=== PATIENT | male | born 1945 | race Caucasian/White ===

== ENCOUNTER 2024-12-16 22:01 | Emergency (ER) | payer OTHER ==
[~2024-12-16] VITALS: Ht 190.5 cm; Wt 93.9 kg
[~2024-12-16 22:01] MED LIST: Antivert25 MG PO; CYCL10 PO; IBUP600 PO; Norco 5-325 Ta1 EACH PO; TRAZ100 PO; ZOLP10 PO
[2024-12-16] MEDS ORDERED: Ondansetron HCl 2 MG / ML 2ML Vial IV ONE (23:15)
[2024-12-17 01:12] VITALS: BP 154/79
== END 2024-12-17 01:12 | disposition home or self-care (01) ==
LOC: ER 22:01
DX: S83.92XA Sprain of unspecified site of left knee, initial encounter (principal); W18.30XA Fall on same level, unspecified, initial encounter; E11.9 Type 2 diabetes mellitus without complications; I48.91 Unspecified atrial fibrillation; F17.210 Nicotine dependence, cigarettes, uncomplicated; Z88.5 Allergy status to narcotic agent; Z79.899 Other long term (current) drug therapy
CPT/HCPCS: 73562-LT; 93005; 93010; 96374; 99284-25; J2405